=== PATIENT | male | born 1995 | race African-American/Black ===

== ENCOUNTER 2024-06-21 13:49 | Emergency (ER) | payer MEDICAID ==
[~2024-06-21] VITALS: Ht 182.9 cm; Wt 95.0 kg
[2024-06-21 13:53] VITALS: BP 124/61; PULSE 73; RESP 16; TEMP 98.6; O2SAT 100; O2SAT 98
[2024-06-21] MEDS: TETANUS, DIPHTHERIA, PERTUSSIS VAC/PF 0.5ML (>10YR OLD) IM ONE (15:28)
== END 2024-06-21 22:14 | disposition home or self-care (01) ==
LOC: ER 13:58
DX: S00.03XA Contusion of scalp, initial encounter (principal); X58.XXXA Exposure to other specified factors, initial encounter; Y93.89 Activity, other specified; Y92.89 Other specified places as the place of occurrence of the external cause; Y99.8 Other external cause status
CPT/HCPCS: 70450; 90715; 90471; 99285; Z7610 ×2